=== PATIENT | male | born 1940 | race American Indian/Alaskan Native ===

== ENCOUNTER 2017-03-06 06:23 | Day surgery (SDC) | payer MEDICARE ==
[2017-03-06] MEDS ORDERED: ECOTRIN PO ONE ×2 (06:38→06:43)
[2017-03-06] MEDS ORDERED: NACL 0.9% 500 ML 500 ML IV SCH (07:00)
[2017-03-06 07:06] LABS: Eosinophils % (Auto) 4.3 % (0.0-4.3); Hematocrit 38.2 % (35.5-45.6); Hemoglobin 12.7 gm/dl (11.8-15.2); Mean Corpuscular HGB Conc 33 % (32-34); Mean Corpuscular Hemoglobin 30 pg (28-32); Mean Corpuscular Volume 90 fl (84-94); Platelet Count 149 K/mm3 (140-440); Red Blood Count 4.27 M/mm3 (3.65-5.03); Red Cell Distribution Width 13.2 % (13.2-15.2); White Blood Count 5.9 K/mm3 (4.5-11.0)
[2017-03-06 07:15] LABS: INR 1.09 (0.87-1.13)
[2017-03-06 07:17] LABS: Anion Gap 15 mmol/L; Blood Urea Nitrogen 20 mg/dL (9-20); Calcium 9.1 mg/dL (8.4-10.2); Carbon Dioxide 27 mmol/L (22-30); Chloride 96.8 mmol/L (98-107); Glucose 184 mg/dL (75-100); Potassium 4.1 mmol/L (3.6-5.0); Sodium 135 mmol/L (137-145)
[2017-03-06] MEDS ORDERED: HEPARIN/NS 5000 UNIT/500ML(CATH LAB) 1,500 ML IR ONE (08:05)
[2017-03-06] MEDS ORDERED: XYLOCAINE 2% INFILTRATI ONE (08:05)
[2017-03-06] MEDS ORDERED: SUBLIMAZE ONE (08:06)
[2017-03-06] MEDS ORDERED: VERSED ONE (08:06)
[2017-03-06] MEDS ORDERED: HEPARIN/NS 5000 UNIT/500ML(CATH LAB) 500 ML IR ONE (09:38)
--- NOTE | 2017-03-06 11:34 | Short Stay Summary ---
Short Stay Documentation Date of service: 03/06/17 - History H&P: obtained from office - Allergies and Medications Current Medications: Allergies No Known Allergies Allergy (Verified 03/06/17 06:43) Home Medications Medication Instructions Recorded Confirmed Last Taken Type Aspirin EC [Aspirin Enteric Coated 81 mg PO QDAY 03/06/17 03/06/17 03/05/17 History TAB] AtorvaSTATin [Lipitor] 80 mg PO QHS 03/06/17 03/06/17 03/05/17 History AtorvaSTATin [Lipitor] 80 mg PO QHS #30 tab 03/06/17 Unknown Rx Ezetimibe [Zetia] 10 mg PO QDAY #30 tablet 03/06/17 Unknown Rx Ferrous Sulfate [Feosol] 325 mg PO BID 03/06/17 03/06/17 03/05/17 History Hydralazine HCl [Apresoline TAB] 50 mg PO BID 03/06/17 03/06/17 03/05/17 History ISOSORBIDE MONOnitrate [Imdur ER] 30 mg PO DAILY 03/06/17 03/06/17 03/05/17 History Metformin HCl [Glucophage] 1,000 mg PO BID 03/06/17 03/06/17 03/05/17 History Metoprolol Xl [Metoprolol 25 mg PO QDAY 03/06/17 03/06/17 03/05/17 History SUCCINATE ER TAB] Pantoprazole [Protonix] 40 mg PO QDAY 03/06/17 03/06/17 03/05/17 History Ranitidine HCl [Zantac 150 MG TAB] 150 mg PO QHS 03/06/17 03/06/17 03/05/17 History glipiZIDE [Glucotrol] 10 mg PO QDAY 03/06/17 03/06/17 03/05/17 History Active Medications Sodium Chloride (Nacl 0.9% 500 Ml) 500 mls @ 50 mls/hr IV DIRECT THOMPSON Stop: 03/06/17 16:59 Last Admin: 03/06/17 07:45 Dose: 50 mls/hr - Brief post op/procedure progress note Date of procedure: 03/06/17 Pre-op diagnosis: CAD Post-op diagnosis: same Procedure: C - see report Anesthesia: local Estimated blood loss: none Pathology: none Condition: stable - Disposition Condition at discharge: Stable Disposition: DISCHARGED TO HOME OR SELFCARE - Discharge Diagnoses (1) CAD (coronary artery disease) Status: Chronic Qualifiers: Coronary Disease-Associated Artery/Lesion type: C [place] vs. transplanted heart: N Associated angina: A (2) Aortic stenosis Status: Chronic Qualifiers: Cardiac valve disease etiology: C (3) HTN (hypertension) Status: Chronic Qualifiers: Hypertension type: H (4) Hyperlipidemia Status: Chronic Qualifiers: Hyperlipidemia type: H Short Stay Discharge Plan Activity: advance as tolerated Diet: low fat, low cholesterol, low salt Wound: open to air, keep clean and dry Follow up with: KIESHA PERERA MD [Staff Physician] - 7 Days Prescriptions: AtorvaSTATin [Lipitor] 80 mg PO QHS #30 tab Ezetimibe [Zetia] 10 mg PO QDAY #30 tablet
[2017-03-06 14:31] VITALS: BP 158/66
--- NOTE | 2017-03-06 15:07 | Cardiac Catherization Report ---
PROCEDURE: Left and right heart catheterization, bypass grafts and internal mammary graft injection. CLINICAL INFORMATION: This is a 76-year-old -[place]ish gentleman with history of hypertension, hyperlipidemia and history of atrial flutter ablation has a history of anemia and coronary artery disease, bypass. The patient in 2013 had PCI of SVG to OM with a nondrug eluting Vision stent 2.5 with a patent SVG to diagonal and DOSS to LAD and RCA was patent with normal LV function. The patient is found with shortness of breath with exertion and has aortic stenosis on echocardiogram worsening is here for a left and right heart catheterization. PROCEDURE DETAILS: Left and right heart catheterization was performed in the right common femoral artery and common femoral vein. Sterile technique, local anesthesia, a 6-Japanese groin sheath put in the right common femoral artery and 8-Japanese groin sheath in the right common femoral vein. Left system engaged with JR4 catheter. There is moderate tortuosity of the iliac system, distal abdominal aorta. The left main is a medium caliber vessel, patent and bifurcates into a small to medium caliber LAD, proximal 95% lesion, mid 80 that becomes 80% and 100% and a small diagonal 1 is patent. Circumflex is a [id number] caliber vessel, proximal 80%, OM1 100%. OM2 is small caliber vessel that is diffusely diseased. RCA engaged with JR4 catheter, it is dominant vessel, medium caliber proximal patent to mid diffuse 60 to 70%, distal patent. Small PDA and PLV that are patent collaterals feeding into the distal circumflex, right to left, SVG to OM engaged with JR4 catheter, is a large caliber graft. Proximal stent patent with mild in-stent restenosis. Distal patent and feeds into a small OM1 that is patent and the jump graft to OM3. OM2 is occluded. Did an aortogram which showed a calcified aorta and subselective. The SVG to diagonal appears to be patent, unable to engage the catheters with multiple catheters selections. DOSS to LAD was engaged with an ROBERT catheter, is a large caliber graft, free of disease at the ostium, body and anastomosis site and the patient has patent DOSS to LAD then crossed the aortic valve with a JR4 catheter. LV was 193 with an LVEDP of 20 mmHg, aortic is 170/63. [id number] was 23, mean of 27 with a calculated at 1.3, which is moderate stenosis, right heart catheterization, which was done which revealed a wedge of 18 mmHg, PA was 53/21, RV was 56/4, RA was 11 with a mean of 8 mmHg, PA sat was 70. RV sat was 70, RA was 73, aortic was 96. There was no step or step down. Cardiac output was 7.17, cardiac index 3.35. PVR was 189. All catheters were removed over a guidewire. ____ removed. Groin sheath was discontinued. Manual pressure held. No hematoma. No bleeding. SUMMARY: 1. The patient has moderate aortic stenosis with a calculated area 1.31 mm cm2, [id number] gradient 23, mean of 27. Cardiac output of 7 and the cardiac index 3.1. The patient has normal LV function. 2. There was no step up and step down. No appreciable mitral stenosis noted. 3. Left main patent, LAD proximal 95% with patent DOSS to LAD and then subselected SVG to diagonal patent. 4. Circumflex proximally 80% with patent SVG to OM1 with proximal stent patent. RCA has mid diffuse 60-70% with normal function. The patient will be treated aggressively with medical therapy, I would suggest therapeutic regimen. Discussed in detail with the patient and the patient's family. JOB# [id number] SILKE/ELLIE
== END 2017-03-06 15:50 | disposition home or self-care (01) ==
LOC: OPU 06:23
PROVIDERS: ATTEND Internal Medicine
DX: I35.0 Nonrheumatic aortic (valve) stenosis (principal); I25.10 Atherosclerotic heart disease of native coronary artery without angina pectoris; I10 Essential (primary) hypertension; E78.5 Hyperlipidemia, unspecified; I48.91 Unspecified atrial fibrillation; D64.9 Anemia, unspecified; E11.9 Type 2 diabetes mellitus without complications; K21.9 Gastro-esophageal reflux disease without esophagitis; Z95.1 Presence of aortocoronary bypass graft; Z95.5 Presence of coronary angioplasty implant and graft; Z79.899 Other long term (current) drug therapy; Z79.84 Long term (current) use of oral hypoglycemic drugs
CPT/HCPCS: 36415; 80048; 85025; 85610; 85730; 93005; 93010; 93461; C1751; C1769; C1894; J1644; J2250; J3010; Q9967